=== PATIENT | male | born 1955 | race Caucasian/White ===

== ENCOUNTER 2016-08-17 13:48 | Emergency (ER) | payer OTHER ==
--- NOTE | 2016-08-17 14:08 | ER Document Report ---
ED Cardiac - General Stated Complaint: DIZZINESS Time Seen by Provider: 08/17/16 14:03 Information source: Patient - HPI Patient complains to provider of: Palpitations, Shortness of breath, Other - lightheaded, nausea Severity now: None Pain level currently: 0 Positive cardiac history: No Associated symptoms: Dizziness, Fatigue, Nausea/vomiting, Shortness of breath. denies: Syncope Exacerbated by: Activity Relieved by: Nothing Similar symptoms previously: No Recently seen / treated by doctor: No Notes: symptoms began a week ago while mowing grass in the heat - Related Data Allergies/Adverse Reactions: No Known Allergies Allergy (Verified 08/17/16 18:52) Past Medical History - Social History Smoking Status: Never Smoker Lives with: Spouse/Significant other Family History: CVA - Past Medical History Cardiac Medical History: Reports: Hx Heart Murmur, Other - MVP HTN High Cholesterol Review of Systems - Review of Systems Constitutional: Weakness EENT: denies: Blurred vision Cardiovascular: Dizziness, Lightheaded. denies: Chest pain Respiratory: Short of breath Gastrointestinal: Nausea. denies: Vomiting Musculoskeletal: denies: Leg swelling Skin: denies: Rash Hematologic/Lymphatic: denies: Blood clots Neurological/Psychological: denies: Gait changes, Numbness, Tingling Physical Exam - Vital signs Vitals: Temp Pulse Resp BP Pulse Ox 97.7 F 92 21 H 134/88 H 97 08/17/16 13:52 08/17/16 13:52 08/17/16 13:52 08/17/16 13:52 08/17/16 13:52 - Notes Notes: GENERAL: Well-appearing, well-nourished and in no acute distress. HEAD: Atraumatic, normocephalic. EYES: Pupils equal round and reactive to light, extraocular movements intact, sclera anicteric, conjunctiva are normal. ENT: TMs normal, nares patent, oropharynx clear without exudates. Moist mucous membranes. NECK: Normal range of motion, supple without lymphadenopathy or JVD. LUNGS: Breath sounds clear to auscultation bilaterally and equal. No wheezes rales or rhonchi. HEART: Irregularly irregular, slight tachycardia, no murmur appreciated ABDOMEN: Soft, nontender, normoactive bowel sounds. No guarding, no rebound. No masses appreciated. EXTREMITIES: Normal range of motion, no pitting or edema. No clubbing or cyanosis. NEUROLOGICAL: Cranial nerves II through XII grossly intact. Normal speech, normal gait. PSYCH: Normal mood, normal affect. SKIN: Warm, Dry, normal turgor, no rashes or lesions noted. Course - Re-evaluation Re-evalutation: 08/17/16 17:39 Transfer to [facility] initiated at pt request 08/17/16 17:[address] Frederick at [facility] for [facility]. Patient is hemodynamically stable at this time. CT of the chest is negative for pulmonary embolism. 08/17/16 21:14 Patient is hemodynamically stable. He states he is feeling somewhat better. He has ambulated to the restroom. He is stable for transport to [facility] for further treatment. - Vital Signs Vital signs: Temp Pulse Resp BP Pulse Ox 98.0 F 92 14 108/85 95 08/17/16 20:30 08/17/16 13:52 08/17/16 21:01 08/17/16 21:01 08/17/16 21:01 - Laboratory Result Diagrams: 08/17/16 15:00 08/17/16 15:00 Laboratory results interpreted by me: 08/17/16 08/17/16 08/17/16 15:00 15:00 15:00 RDW 14.8 H Plt Count 129 L Seg Neutrophils % 39.0 L Lymphocytes % 46.0 H D-Dimer 3.15 H BUN 25 H Creatinine 1.38 H Est GFR (Non-Af Amer) 52 L Total Bilirubin 1.5 H AST 13 L - Diagnostic Test Radiology reviewed: Image reviewed, Reports reviewed - CXR- cardiomegaly, no failure Discharge - Discharge Clinical Impression: Atrial fibrillation Qualifiers: Atrial fibrillation type: unspecified Qualified Code(s): I48.91 - Unspecified atrial fibrillation Condition: Stable Disposition: [facility] Scribe Attestation: 08/17/16 21:15 I personally performed the services described in the documentation, reviewed and edited the documentation which was dictated to the scribe in my presence, and it accurately records my words and actions.
[2016-08-17] MEDS ORDERED: DILTIAZEM HCL INJ 25 MG/5 ML VIAL IV ONE (14:21)
[2016-08-17] MEDS ORDERED: DILTIAZEM HCL/D5W 125 ML IV PRN (15:04)
--- NOTE | 2016-08-17 15:15 | RADIOLOGY REPORT (SQ) ---
EXAM DESCRIPTION: CHEST PA/LAT COMPLETED DATE/TIME: 08/17/2016 2:40 pm REASON FOR STUDY: new onset a-fib COMPARISON: None. NUMBER OF VIEWS: Two view. TECHNIQUE: Frontal and lateral radiographic views of the chest acquired. LIMITATIONS: Overlying breast tissue. FINDINGS: LUNGS AND PLEURA: No opacities, masses or pneumothorax. No pleural effusion. MEDIASTINUM AND HILAR STRUCTURES: No masses. No contour abnormalities. HEART AND VASCULAR STRUCTURES: Heart enlarged without failure. Aorta normal for age. BONES: No acute findings. HARDWARE: None in the chest. OTHER: No other significant finding. IMPRESSION: CARDIAC ENLARGEMENT WITHOUT FAILURE. TECHNICAL DOCUMENTATION: JOB ID: [id number] [employer]- All Rights Reserved
[2016-08-17 15:16] LABS: ABSOLUTE EOSINOPHILS # (AUTO) 0.2 10^3/uL (0.0-0.6); ABSOLUTE LYMPHOCYTES (AUTO) 2.5 10^3/uL (0.5-4.7); ABSOLUTE MONOCYTES (AUTO) 0.6 10^3/uL (0.1-1.4); ABSOLUTE NEUT (AUTO) 2.1 10^3/uL (1.7-8.2); BASOPHILS % (AUTO) 0.3 % (0-2); EOSINOPHILS % (AUTO) 3.5 % (0-6); HEMATOCRIT 43.2 % (37.9-51.0); HEMOGLOBIN 14.5 g/dL (13.5-17.0); HGB HCT DIFFERENCE 0.3; MEAN CORPUSCULAR HEMOGLOBIN 31.2 pg (27.0-33.4); MEAN CORPUSCULAR HGB CONC 33.6 g/dL (32.0-36.0); MEAN CORPUSCULAR VOLUME 93 fl (80-97); MONOCYTES % (AUTO) 11.2 % (3-13); RED BLOOD COUNT 4.65 10^6/uL (4.35-5.55); RED CELL DISTRIBUTION WIDTH 14.8 % (11.5-14.0); WHITE BLOOD COUNT 5.3 10^3/uL (4.0-10.5)
[2016-08-17 15:33] LABS: ALANINE AMINOTRANSFERASE 24 U/L (21-72); ALBUMIN 3.9 g/dL (3.5-5.0); ALKALINE PHOSPHATASE 53 U/L (38-126); ANION GAP 12 (5-19); ASPARTATE AMINO TRANSFERASE 13 U/L (17-59); BILIRUBIN,DIRECT 0.2 mg/dL (0.0-0.4); BILIRUBIN,TOTAL 1.5 mg/dL (0.2-1.3); BLOOD UREA NITROGEN 25 mg/dL (7-20); CALCIUM 9.1 mg/dL (8.4-10.2); CARBON DIOXIDE 25 mmol/L (22-30); CHLORIDE 105 mmol/L (98-107); CREATINE KINASE 82 U/L (55-170); CREATININE RESULT 1.38 mg/dL (0.52-1.25); GLUCOSE 86 mg/dL (75-110); POTASSIUM 4.4 mmol/L (3.6-5.0); SODIUM 142.1 mmol/L (137-145); TOTAL PROTEIN 6.5 g/dL (6.3-8.2)
[2016-08-17 15:45] LABS: CREATINE KINASE MB 1.28 ng/mL (<4.55)
[2016-08-17 15:49] LABS: TROPONIN I 0.038 ng/mL
--- NOTE | 2016-08-17 16:55 | EKG REPORT ---
SEVERITY:- ABNORMAL ECG - ATRIAL FIBRILLATION, V-RATE 70-163 LEFT BUNDLE BRANCH BLOCK : Confirmed by: Benito Barrios MD 17-Aug-2016 16:54:33
--- NOTE | 2016-08-17 17:28 | RADIOLOGY REPORT (SQ) ---
EXAM DESCRIPTION: CTA CHEST COMPLETED DATE/TIME: 08/17/2016 5:05 pm REASON FOR STUDY: new onset a fib, + d dimer COMPARISON: Chest x-ray done earlier the same day TECHNIQUE: CT scan of the chest performed using helical scanning technique with dynamic intravenous contrast injection. Images reviewed with lung, soft tissue and bone windows. Reconstructed coronal and sagittal MPR images reviewed. Additional 3 dimensional post-processing performed to develop Maximal Intensity Projection images (MA P). All images stored on PACS. All CT scanners at this facility use dose modulation, iterative reconstruction, and/or weight based d osing when appropriate to reduce radiation dose to as low as reasonably achievable (ALARA). [facility]: Dose Right [facility]: CareDose [facility]: Dose Right [facility]: Teradose 4D [facility]: [email or web address] CONTRAST TYPE AND DOSE: 77 mL Isovue 370 RENAL FUNCTION: BUN 25, creatinine 1.38 RADIATION DOSE: 42.32 mGy. LIMITATIONS: None. FINDINGS: LUNGS AND PLEURA: No masses, infiltrates, pneumothorax. No pleural effusions, calcificati ons. AORTA AND GREAT VESSELS: No aneurysm or dissection. HEART: No pericardial effusion. PULMONARY ARTERIES: No emboli visualized in the main pulmonary arteries or the segmental branches. HILAR AND MEDIASTINAL STRUCTURES: There are small mediastinal hilar nodes most likely reactive but no nspecific. HARDWARE: None in the chest. UPPER ABDOMEN: No significant findings. Limited exam. THYROID AND OTHER SOFT TISSUES: No masses. No adenopathy. BONES: No acute or significant finding. 3D MIPS: Confirm above findings. OTHER: No other significant finding. IMPRESSION: Small mediastinal and hilar nodes most likely reactive. No pulmonary emboli. No consol idation or effusions. TECHNICAL DOCUMENTATION: JOB ID: [id number] Quality ID # [id number]: Final reports with documentation of one or more dose reduction techniques (e.g., Au tomated exposure control, adjustment of the mA and/or kV according to patient size, use of iterative reconstruction technique) 2010 [employer]- All Rights Reserved
[2016-08-17] MEDS ORDERED: ASPIRIN 325 MG TABLET PO ONE (17:51)
[2016-08-17 21:08] VITALS: BP 108/85
== END 2016-08-17 19:29 | disposition short-term general hospital (02) ==
LOC: ER 13:48
DX: I48.91 Unspecified atrial fibrillation (principal); R42 Dizziness and giddiness; R00.2 Palpitations; R06.02 Shortness of breath; R11.0 Nausea; R53.83 Other fatigue; I10 Essential (primary) hypertension; E78.00 Pure hypercholesterolemia, unspecified
CPT/HCPCS: 93005; 96376; 99285; 96365; 96366; 36415; 82553; 82550; 84443; 85025; 80053; 84484; 85379; 71020; 71275; 93010; J3490 ×2